=== PATIENT | male | born 1965 | race Caucasian/White ===

== ENCOUNTER 2016-08-07 09:56 | Day surgery (SDC) | payer BC, OTHER ==
[2016-08-07] MEDS ORDERED: PROPOFOL 10 MG/ML VIAL IV ONE (14:00)
[2016-08-07] MEDS ORDERED: LIDOCAINE 2% MDV (20MG/ML) 20ML VIAL IV ONE (14:00)
--- NOTE | 2016-08-07 15:42 | Operative Note ---
DATE OF SURGERY: 08/07/2016. DICTATING HISTOLOGIC TECHNICIAN: Miguel Lainez D.O. dictating for Hector Nolan D.O. PREOPERATIVE INDICATION: This is a 51-year-old male undergoing initial screening colonoscopy. POSTOPERATIVE DIAGNOSIS: Normal colonoscopy to the terminal ileum. PROCEDURE: Colonoscopy. ENDOSCOPIST: Hector Nolan D.O. HISTOLOGIC TECHNICIAN: Miguel Lainez D.O. ANESTHESIA: Anesthesia was provided by the Anesthesia Department. COMPLICATIONS: None. QUALITY OF PREPARATION: Excellent. PROCEDURE: The procedure was thoroughly explained to the patient including risks, benefits, and alternatives. The patient had an opportunity to have his questions answered and sign informed written consent. The patient was transported to the endoscopy suite and placed in the left lateral decubitus position. A digital rectal examination was performed with no abnormalities felt. Good anal sphincter tone. A well-lubricated PCF-180 colonoscope was inserted into the rectum and advanced to the cecum under direct visualization. The appendiceal orifice and ileocecal valve were identified. The terminal ileum was intubated and appeared normal for several centimeters. Retroflexion was performed in the ascending colon with no abnormalities seen. The colonoscope was straightened and the colon was again evaluated in detail as the colonoscope was withdrawn. There were no mucosal abnormalities. Retroflexion was performed in the rectum with no abnormalities seen. The colonoscope was straightened and the rectum was decompressed as the colonoscope was withdrawn. The patient tolerated the procedure well and will be transported to Recovery in stable condition. Findings of the examination will be discussed with the patient in Recovery. RECOMMENDATIONS: Repeat colonoscopy in ten years for screening unless family history of colorectal cancer would dictate otherwise HECTOR NOLAN D.O. Date Time cc: Drew Renner D.O. Job Number: [id number] MTDD
== END 2016-08-07 12:30 | disposition home or self-care (01) ==
LOC: HOP 09:56
PROVIDERS: ATTEND Internal Medicine Gastroenterology
DX: Z12.11 Encounter for screening for malignant neoplasm of colon (principal)

== ENCOUNTER 2016-08-11 20:07 | Emergency (ER) | payer BC ==
[2016-08-11] MEDS ORDERED: BUPIVACAINE 0.25% PF (2.5MG/ML) 10ML VIAL IM ONE (20:35)
--- NOTE | 2016-08-11 20:35 | Emergency Department Record ---
History of Present Illness - General Chief complaint: Pain Stated complaint: FINGER INJURY Time Seen by Provider: 08/11/16 20:21 Source: Patient Mode of Arrival: Ambulatory Limitations: No limitations - History of Present Illness Initial comments: pt injured finger while playing soccer. MD Complaint: Extremity pain Onset/Timin -: Minutes(s) Location: Right, Hand Severity scale (1-10): 3 Consistency: Constant Improves with: Nothing Worsens with: Palpation Associated Symptoms: Denies other symptoms - Related Data Home Medications Medication Instructions Recorded Confirmed Last Taken No Home Med [NO HOME MEDS] 08/11/16 08/11/16 Unknown Allergies Allergy/AdvReac Type Severity Reaction Status Date / Time No Known Drug Allergies Allergy Verified 08/11/16 20:10 Travel Screening - Travel/Exposure Within Last 30 Days Have you traveled within the last 30 days?: No - Travel Symptoms Symptom Screening: None Review of Systems Reviewed: No additional complaints except as noted below Constitutional: Reports: As per HPI. Denies: Chills, Fever, Malaise, Night sweats, Weakness, Weight change Eyes: Reports: As per HPI. Denies: Eye discharge, Eye pain, Photophobia, Vision change ENT: Reports: As per HPI. Denies: Congestion, Dental pain, Ear pain, Epistaxis , Hearing loss, Throat pain Respiratory: Reports: As per HPI. Denies: Cough, Dyspnea, Hemoptysis, Stridor, Wheezes Cardiovascular: Reports: As per HPI. Denies: Arrhythmia, Chest pain, Dyspnea on exertion, Edema, Murmurs, Orthopnea, Palpitations, Paroxysmal nocturnal dyspnea, Rheumatic Fever, Syncope Endocrine: Reports: As per HPI. Denies: Fatigue, Heat or cold intolerance, Polydipsia, Polyuria Gastrointestinal: Reports: As per HPI. Denies: Abdominal pain, Constipation, Diarrhea, Hematemesis, Hematochezia, Melena, Nausea, Vomiting Genitourinary: Reports: As per HPI. Denies: Dysuria, Frequency, Hematuria, Incontinence, Retention, Testicular pain, Testicular mass, Urgency Musculoskeletal: Reports: As per HPI. Denies: Arthralgia, Back pain, Gout, Joint swelling, Myalgia, Neck pain Skin: Reports: As per HPI. Denies: Bruising, Change in color, Change in hair/ nails, Lesions, Pruritus, Rash Neurological: Reports: As per HPI. Denies: Abnormal gait, Confusion, Headache, Numbness, Paresthesias, Seizure, Tingling, Tremors, Vertigo, Weakness Psychiatric: Reports: As per HPI. Denies: Anxiety, Auditory hallucinations, Depression, Homicidal thoughts, Suicidal thoughts, Visual hallucinations Hematological/Lymphatic: Reports: As per HPI. Denies: Anemia, Blood Clots, Easy bleeding, Easy bruising, Swollen glands Past Medical History - SOCIAL HISTORY Smoking Status: Never smoker - RESPIRATORY Hx Respiratory Disorders: No - CARDIOVASCULAR Hx Cardio Disorders: No - NEURO Hx Neuro Disorders: No - GI Hx GI Disorders: No - Hx Genitourinary Disorders: No - ENDOCRINE Hx Endocrine Disorders: No - MUSCULOSKELETAL Hx Musculoskeletal Disorders: No - PSYCH Hx Psych Problems: No - HEMATOLOGY/ONCOLOGY Hx Hematology/Oncology Disorders: No Family Medical History Any Significant Family History?: Yes Hx Diabetes: Grandparents Hx Stroke: Grandparents Physical Exam - General General Appearance: Alert, Oriented x3, Cooperative, Mild distress - Head Head exam: Normal inspection - Eye Eye exam: Normal appearance, PERRL, EOMI Pupils: Normal accommodation - ENT ENT exam: Normal exam, Mucous membranes moist, Normal external ear exam, Normal orophraynx Ear exam: Normal external inspection. negative: External canal tenderness Nasal Exam: Normal inspection. negative: Discharge, Sinus tenderness Mouth exam: Normal external inspection, Tongue normal Teeth exam: Normal inspection. negative: Dental caries Throat exam: Normal inspection. negative: Tonsillar erythema, Tonsillar exudate - Neck Neck exam: Normal inspection, Full ROM. negative: Tenderness - Respiratory Respiratory exam: Normal lung sounds bilaterally. negative: Respiratory distress - Cardiovascular Cardiovascular Exam: Regular rate, Normal rhythm, Normal heart sounds - GI/Abdominal GI/Abdominal exam: Soft, Normal bowel sounds. negative: Tenderness - Rectal Rectal exam: Deferred - exam: Deferred - Extremities Extremities exam: Normal inspection, Normal capillary refill, Tenderness, Other (deformity and obvious dislocation of 5th finger of r hand). negative: Full ROM - Back Back exam: Reports: Normal inspection, Full ROM. Denies: Muscle spasm, Rash noted, Tenderness - Neurological Neurological exam: Alert, Normal gait, Oriented X3, Reflexes normal - Psychiatric Psychiatric exam: Normal affect, Normal mood - Skin Skin exam: Dry, Intact, Normal color, Warm Course Vital Signs 08/11/16 20:13 Temperature 97.7 F Pulse Rate 51 L Respiratory 16 Rate Blood Pressure 131/86 Pulse Ox 99 Procedures - Orthopedic Joint Reduction Joint #1 Consent Obtained: Written consent Time Out Performed: Yes Side: Right Joint Reduction Location: Finger Analgesia: Digital block Local Anesthetic Used: Bupivicaine 0.25% Technique Used: Traction/counter-traction Post-Reduction Neuro Exam: Intact Post-Reduction Vascular Exam: Intact Post Reduction X-Ray Obtained: Yes Post Reduction X-Ray Results: Reduced Splint Applied: Yes Patient Tolerated Procedure: Good Medical Decision Making - Management Options MDM Management: Additional Work-up Planned (e.g. ADM/Transfer/OP Study) - Data Complexity MDM Data: X-Ray Ordered and/or Reviewed - Radiology Data Radiology results: Report reviewed, Image reviewed Disposition Disposition: Discharge Clinical Impression: Dislocation, finger, interphalangeal joint Qualifiers: Encounter type: initial encounter Qualified Code(s): S63.289A - Dislocation of proximal interphalangeal joint of unspecified finger, initial encounter Disposition: Home, Self-Care Condition: (1) Good Instructions: Finger Dislocation (ED) Additional Instructions: follow up with family doctor and with dr choi. ice and elevation. return sooner if worse Referrals: ESTUARDO CHOI [MEDICAL DOCTOR] - Forms: Patient Portal Access
--- NOTE | 2016-08-15 14:39 | RADIOLOGY REPORT ---
EXAM: RIGHT FIFTH FINGER, THREE VIEWS HISTORY: RIGHT FINGER INJURY, DISLOCATION, PAIN. TECHNIQUE: Three views of the right fifth finger were obtained. Comparison: None. FINDINGS: There is dorsal lateral dislocation of the right fifth middle phalanx with respect to the proximal phalanx. No fracture. IMPRESSION: DISLOCATION AT THE RIGHT FIFTH PIP. NO FRACTURE. JOB NUMBER: [id number] MTDD
--- NOTE | 2016-08-15 14:41 | RADIOLOGY REPORT ---
EXAM: RIGHT FIFTH FINGER, THREE VIEWS HISTORY: POST REDUCTION. TECHNIQUE: Three views of the right fifth finger were obtained. Comparison: Right fifth finger radiograph same day. FINDINGS: Interval reduction of dislocated right fifth PIP. No fracture. Anatomic alignment. IMPRESSION: INTERVAL REDUCTION OF DISLOCATED RIGHT FIFTH PIP WITH ANATOMIC ALIGNMENT. JOB NUMBER: [id number] MTDD
== END 2016-08-11 22:02 | disposition home or self-care (01) ==
LOC: ER 20:07
DX: S63.286A Dislocation of proximal interphalangeal joint of right little finger, initial encounter (principal); W22.8XXA Striking against or struck by other objects, initial encounter; Y93.66 Activity, soccer
CPT/HCPCS: 26770; 73140; 99283; 99284